=== PATIENT | female | born 1990 | race African-American/Black ===

== ENCOUNTER 2021-11-01 22:10 | Emergency (ER) | payer OTHER ==
[~2021-11-01] VITALS: Ht 165.1 cm; Wt 78.5 kg
[2021-11-01 22:13] VITALS: BP 126/74
== END 2021-11-01 23:21 | disposition left against medical advice (07) ==
LOC: ER 22:10
DX: M54.2 Cervicalgia (principal); F15.129 Other stimulant abuse with intoxication, unspecified; F17.210 Nicotine dependence, cigarettes, uncomplicated; Z53.21 Procedure and treatment not carried out due to patient leaving prior to being seen by health care provider; V49.3XXA Car occupant (driver) (passenger) injured in unspecified nontraffic accident, initial encounter; Y93.89 Activity, other specified; Y92.89 Other specified places as the place of occurrence of the external cause; Y99.8 Other external cause status